=== PATIENT | male | born 1950 | race Caucasian/White ===

== ENCOUNTER → 2020-05-27 | Outpatient (CLI) | payer MEDICARE ==
[~2020-05-27] MED LIST: OMEP20 PO; PROP20TA18 PO; SODIUM CHLORIDE 0.9% 1,000 ML IV ONE; TAMS-13 PO; TENO25TA PO
[2020-05-27 13:34] LABS: COVID AG,FIA SOURCE NASOPHARYNGEAL
== END | disposition home or self-care (01) ==
LOC: LABMN 12:35 → EDSTATUS 05-30 13:00
PROVIDERS: ATTEND Internal Medicine Gastroenterology
DX: Z20.828 Contact with and (suspected) exposure to other viral communicable diseases (principal)
CPT/HCPCS: 87426; C9803

== ENCOUNTER 2020-07-14 09:44 | Day surgery (SDC) | payer MEDICARE ==
[2020-07-13 13:56] LABS: COVID AG,FIA SOURCE NASOPHARYNGEAL
[~2020-07-14] VITALS: Ht 162.6 cm; Wt 58.6 kg
[~2020-07-14 09:44] MED LIST changes: -SODIUM CHLORIDE 0.9% 1,000 ML IV ONE; +SODIUM CHLORIDE 0.9% 1,000 ML ONE; -TAMS-13 PO
[2020-07-14] MEDS ORDERED: LABETALOL HCL 5 MG/ML 20 ML VIAL IVP ONE (09:45)
[2020-07-14] MEDS ORDERED: TAMS-13 PO (10:02)
[2020-07-14] MEDS ORDERED: SODIUM CHLORIDE 0.9% 1,000 ML IV ONE (12:00)
== END 2020-07-14 14:35 | disposition home or self-care (01) ==
LOC: SURGERY 09:44
PROVIDERS: ATTEND Student in an Organized Health Care Education/Training Program
DX: I85.00 Esophageal varices without bleeding (principal); K25.9 Gastric ulcer, unspecified as acute or chronic, without hemorrhage or perforation; Z20.828 Contact with and (suspected) exposure to other viral communicable diseases; K29.50 Unspecified chronic gastritis without bleeding; Z98.890 Other specified postprocedural states; Z79.899 Other long term (current) drug therapy
CPT/HCPCS: 43239; 43244; 87426; 88305; 88312; 88313; C9803; J3490; J7030